=== PATIENT | female | born 1990 | race Caucasian/White ===

== ENCOUNTER → 2020-01-30 09:06 | Outpatient (BNVA) | payer MEDICAID, SELFPAY | PROVIDERS: Family Provider Family Medicine; PCP Family Medicine; Visit Provider Nurse Practitioner Psychiatric/Mental Health | DX: F33.2 Major depressive disorder, recurrent severe without psychotic features (principal); F43.12 Post-traumatic stress disorder, chronic; F60.3 Borderline personality disorder; F41.1 Generalized anxiety disorder | CPT/HCPCS: 99213 ==

== ENCOUNTER → 2020-03-16 08:22 | Outpatient (BNVA) | payer MEDICAID, SELFPAY | PROVIDERS: Family Provider Family Medicine; PCP Family Medicine; Visit Provider Nurse Practitioner Psychiatric/Mental Health | DX: F33.2 Major depressive disorder, recurrent severe without psychotic features (principal); F43.12 Post-traumatic stress disorder, chronic; F60.3 Borderline personality disorder; F41.1 Generalized anxiety disorder | CPT/HCPCS: 99212 ==

== ENCOUNTER 2021-05-12 11:28 | Emergency (ER) | payer MEDICAID, SELFPAY ==
[2021-05-12 11:44] VITALS: BP 123/76; PULSE 92; RESP 16; TEMP 36.8; O2SAT 98; BMI 30.5
--- NOTE | 2021-05-12 12:02 | USR_ITS ---
Are were bowel PROCEDURE INFORMATION: Exam: US , Limited Exam date and time: 05/12/2021 12:02 PM Age: 30 years old Clinical indication: complicated by abdominal or pelvic pain; Generalized abdominal pain; Second trimester (14 weeks 0 days to 27 weeks 6 days); Gestational age or lmp: 22w2d; ; Additional info: Eval for TECHNIQUE: Imaging protocol: Real-time ultrasound of the maternal uterus with image documentation. Exam focused on the clinical indication. COMPARISON: No relevant prior studies available. FINDINGS: Gestation: There is a intrauterine gestational sac with a fetus. heart rate is 153 BPM The amniotic fluid is normal in volume . position: Breech Placenta: The placenta is anterior with fluid collections present corresponding to placental lakes. The edge of the placenta is 4.7 cm from the cervix BIOMETRY: Gestational age (AUA): 22 weeks SOHAN 09/15/2021. Estimated weight: 461 g (1 lb) 45% Biparietal diameter (BPD): BPD 5.1 cm 21 weeks 4 days Head circumference (HC): 20.1 cm 22 weeks 2 days Abdominal circumference (AC): 16.8 cm 21 weeks 6 days Femur length (FL): 3.7 cm 22 weeks MATERNAL: Cervix: The cervical length is 3.3 cm the cervical os is closed. US/ OB limited [id number] IMPRESSION: 1. Single living intrauterine gestation. 2. Gestational age 22 weeks SOHAN 09/15/2021 3. Normal cervix 4. Anterior placenta with placental lakes
--- NOTE | 2021-05-12 12:03 | W.ED.GENADLT ---
HPI - General Adult General: Chief complaint: Nausea/Vomiting/Diarrhea Stated complaint: N/V 5 months Time Seen by Provider: 05/12/21 11:49 History of Present Illness: Patient is a 30-year-old female G2, P1 currently at 22 weeks presenting to the emergency room for evaluation of nausea/vomiting, upper abdominal pain, and diarrhea. Patient has had symptoms for the last 48 hours. Patient says that she is unable to hold anything down since then. Patient has had over 20 episodes of loose stool she says. Patient denies any migratory abdominal pain, anorexia, fever or chills, new urinary symptoms, or worsening abdominal pain. There is no other sick contacts at home. Patient denies any cough, runny nose, sore throat, chest pain, or shortness of breath. Patient also denies any new vaginal discomfort, new contraction, new vaginal bleeding. Patient is followed by OB at [place]. Onset:2 day ago Duration:2 days Location:home Severity:moderate Associated symptoms: Reports nausea and vomiting; Deny chest pain, dyspnea, rash or palpitations Review of Systems Const: Denies: fever(s) or chills Eyes: Denies: change in vision ENMT: Denies: mouth pain Card: Denies: chest pain or palpitations Resp: Denies: dyspnea or non-productive cough GI: Reports: abdominal pain, nausea, vomiting and diarrhea : Denies: dysuria Musc: Denies: extremity pain Skin/Breast: Denies: rash or new lesions Neuro: Denies: weakness in extremities Psych: Reports: other (Normal mood) Burke/Lymph: Denies: easy bruising PFS ED PFSH: Medical History (Updated 05/12/21 @ 12:07 by Ania Villasenor MD) Social History (Updated 05/12/21 @ 12:04 by Ania Villasenor MD) Smoking and tobacco status: current some day smoker Alcohol intake: never Substance/Drug Use: never Physical Exam Const: COMMON NORMALS: alert HENMT: COMMON NORMALS: atraumatic HEAD & SCALP: atraumatic MOUTH: moist mucous membranes not abnormal Eye: COMMON NORMALS: EOMs intact bilaterally and conjunctivae normal CONJUNCTIVA: Yes conjunctivae normal Neck/C-Spine: COMMON NORMALS: full ROM and supple Resp: COMMON NORMALS: normal respiratory effort and clear to auscultation bilaterally AUSCULTATION: clear to auscultation bilaterally Cardio: COMMON NORMALS: regular rate RATE: regular rate GI: COMMON NORMALS: Soft to palpation and non-tender PALPATION: Yes Soft to palpation OTHER: +gravid abdomen, + mild epigastric tenderness to palpation Extremity: COMMON NORMALS: full ROM Neuro: SENSORIUM/ORIENTATION: Yes alert MOTOR EXAM: No Abnormal motor strength present and Other motor observations present (no focal motor deficits) Psych: COMMON NORMALS: speech normal SPEECH: Yes normal speech MOOD & AFFECT: Yes euthymic mood Course Vital Signs: Vital signs: Vital Signs Temperature 98.4 F 05/12/21 13:40 Pulse Rate 96 05/12/21 13:40 Respiratory Rate 14 05/12/21 13:40 Blood Pressure 121/91 05/12/21 13:40 Pulse Oximetry 100 05/12/21 13:40 MDM - General Adult Medical Decision Making 30-year-old female G2, P1 presenting to the emergency room for evaluation of new onset of abdominal pain, nausea/vomiting, diarrhea x2 days. On exam, patient has mild midepigastric tenderness palpation. No other focal findings on exam. Given new onset of diarrhea, this is likely gastroenteritis. Will work-up with basic blood work. I have given patient follow up with our case manager specialist to be seen by our outpatient PCP for management of symptoms in the setting of . Patient aware of a call from our case manager specialist to schedule for appointment(s) and verbalizes understanding of the importance of following up. No suspicion for other acute intra-abdominal pathology including SBO, biliary pathology, appendicitis, diverticulitis, or other emergent condition requiring surgery. Rx tylenol PRN abd pain, maalox/pepcid PRN dyspepsia, and relgan PRN nausea/vomiting Disposition: Discharge. Patient counseled regarding diagnostic impression, treatment plan. Patient given ED strict return precautions to return for continuation, worsening, or development of new symptoms. Instructed to f/u w/ PCP regarding symptoms today. Patient verbalized understanding. Lab Data : 05/12/21 12:30 05/12/21 12:30 Radiology Impressions Obstetrics Ultrasound 05/12/21 12:02 IMPRESSION: 1. Single living intrauterine gestation. 2. Gestational age 22 weeks SOHAN 09/15/2021 3. Normal cervix 4. Anterior placenta with placental lakes Laboratory Results WBC 12.1 10^3/uL (4.0-10.0) H 05/12/21 12:30 RBC 4.13 10^6/uL (4.1-5.3) 05/12/21 12:30 Hgb 12.7 g/dL (11.5-15.3) 05/12/21 12:30 Hct 37.6 % (37.0-47.0) 05/12/21 12: MCV 91.0 fl (81-99) 05/12/21 12: MCH 30.8 pg (28.0-34.0) 05/12/21 12: MCHC 33.8 g/dL (30.0-36.0) 05/12/21: RDW 13.2 % (12.1-15.1) 05/12/21: Plt Count 376 10^3/cmm (130-400) 05/12/21: MPV 9.8 fL (7.4-10.4) 05/12/21 12: Neut % (Auto) 86.6 % 05/12/21 12: Lymph % (Auto) 8.3 % 05/12/21 12: [place] % (Auto) 4.3 % 05/12/21 12: Eos % (Auto) 0.2 % 05/12/21: Baso % (Auto) 0.2 % 05/12/21 12: Neut # (Auto) 10.50 10^3/uL (1.8-7.7) H 05/12/21: Lymph # (Auto) 1.0 10^3/uL (0.8-4.8) 05/12/21 12: [place] # (Auto) 0.5 10^3/uL (0.2-0.9) 05/12/21 12: Eos # (Auto) 0.0 10^3/uL (0.0-0.8) 05/12/21: Baso # (Auto) 0.0 10^3/uL (0.0-0.1) 05/12/21 12:30 Nucleated RBC % (auto) 0 % 05/12/21: Nucleated RBCs # 0.0 /100WBC 05/12/21 12: Sodium 134 mmol/L (136-145) L 05/12/21 12:30 Potassium 3.6 mmol/L (3.5-5.1) 05/12/21 12:30 Chloride 103 mmol/L (98-107) 05/12/21 12:30 Carbon Dioxide 18 mmol/L (22-29) L 05/12/21 12:30 Anion Gap 16.6 (5-19) 05/12/21 12:30 BUN 6 mg/dL (6-20) 05/12/21 12:30 Creatinine 0.3 mg/dL (0.5-0.9) L 05/12/21 12:30 GFR Calculation 261.2 mL/min (90-130) H 05/12/21 12:30 Glucose 104 mg/dL (65-115) 05/12/21 12:30 Calculated Osmolality 276 mOsm/kg (285-295) L 05/12/21 12:30 Calcium 9.4 mg/dL (8.5-10.5) 05/12/21 12:30 Total Bilirubin 0.3 mg/dL (0.15-1.2) 05/12/21 12:30 AST 14 U/L (0-32) 05/12/21 12:30 ALT 10 U/L (0-33) 05/12/21 12:30 Alkaline Phosphatase 82 IU/L (35-105) 05/12/21 12:30 Total Protein 7.6 g/dL (6.6-8.7) 05/12/21 12:30 Albumin 4.2 g/dL (3.5-5.2) 05/12/21 12:30 Globulin 3.4 g/dL (1.3-4.6) 05/12/21 12:30 Lipase 15 U/L (13-60) 05/12/21 12:30 Urine Color Dark yellow (Yellow) 05/12/21 13:00 Urine Appearance Clear (CLEAR) 05/12/21 13:00 Urine pH 5 (5-7) 05/12/21 13:00 Ur Specific [place] 1.025 (1.005-1.030) 05/12/21 13:00 Urine Protein 1+ (Negative) H 05/12/21 13:00 Urine Glucose (UA) Norm (Normal) 05/12/21 13:00 Urine Ketones 3+ (Negative) H 05/12/21 13:00 Urine Blood 2+ (Negative) H 05/12/21 13:00 Urine Nitrate Negative (Negative) 05/12/21 13:00 Urine Bilirubin 1+ (Negative) H 05/12/21 13:00 Urine Urobilinogen Norm mg/dL (Negative) 05/12/21 13:00 Ur Leukocyte Esterase Negative (Negative) 05/12/21 13:00 Urine RBC 0-4 /hpf (0-2) H 05/12/21 13:00 Urine WBC 0-4 /hpf (0-5) H 05/12/21 13:00 Ur Squamous Epith Cells 10-15 /hpf (0-5) H 05/12/21 13:00 Amorphous Sediment Not Reportable 05/12/21 13:00 Urine Bacteria 1+ /hpf (NONE) H 05/12/21 13:00 Urine Mucus 2+ /hpf 05/12/21 13:00 Discharge Plan Discharge Patient Disposition: Home Clinical Impression: Abdominal pain, Nausea & vomiting, Diarrhea Prescriptions: New Pepcid 20 mg tablet 20 mg PO BID PRN (Reason: abdominal pain) 10 Days Qty: 20 0RF Maalox Advanced 1,000-60 mg tablet,chewable 1 tab PO TID PRN (Reason: abdominal pain) 7 Days Qty: 21 0RF Reglan 5 mg tablet 5 mg PO TID PRN (Reason: nausea and vomiting) 5 Days Qty: 15 0RF Discharge Orders: Discharge ED (Routine); Ordered 05/12/21 Ordered By: Ania Villasenor Referrals: Juliana Cruz, SLITTER CREASER SLOTTER HELPER-C [Primary Care Provider] - Discharge Diet: Advance as tolerated Discharge Activity: Increase activity as tolerated Patient Instructions: Abdominal Pain (ED) Activity Restrictions/Additional Instructions: Please come back if you have any worsening abdominal pain, fever or chills, nausea or vomiting, diarrhea, blood in the stool, inability hold down liquid or solids, or any new concerning complaints. 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
[2021-05-12] MEDS: sodium chloride 0.9% 1,000 ML 999 ML IV (12:39)
[2021-05-12] MEDS: metoclopramide 5 mg/mL SDV 2 mL IVP (12:39)
[2021-05-12] MEDS: lidocaine 2% viscous 15 ML, aluminum-mag hydrox-simethicon 30 ML, sucralfate oral liq 1 GM PO (12:39)
[2021-05-12 12:40] LABS: Basophils % 0.2 %; Eosinophils % 0.2 %; Hematocrit 37.6 % (37.0-47.0); Hemoglobin 12.7 g/dL (11.5-15.3); Lymphocytes % 8.3 %; Mean Corpuscular HGB Conc 33.8 g/dL (30.0-36.0); Mean Corpuscular Hemoglobin 30.8 pg (28.0-34.0); Mean Platelet Volume 9.8 fL (7.4-10.4); Monocytes # 0.5 10^3/uL (0.2-0.9); Monocytes % 4.3 %; Neutrophils % 86.6 %; Nucleated Red Blood Cells % 0 %; Platelet Count 376 10^3/cmm (130-400); Red Blood Count 4.13 10^6/uL (4.1-5.3); Red Cell Distribution Width 13.2 % (12.1-15.1); White Blood Count 12.1 10^3/uL (4.0-10.0)
[2021-05-12 13:06] LABS: Alanine Aminotransferase 10 U/L (0-33); Albumin Level 4.2 g/dL (3.5-5.2); Alkaline Phosphatase 82 IU/L (35-105); Anion Gap 16.6 (5-19); Aspartate Amino Transferase 14 U/L (0-32); Blood Urea Nitrogen 6 mg/dL (6-20); Calcium 9.4 mg/dL (8.5-10.5); Carbon Dioxide 18 mmol/L (22-29); Chloride 103 mmol/L (98-107); Globulin 3.4 g/dL (1.3-4.6); Glomerular Filtration Rate 261.2 mL/min (90-130); Glucose 104 mg/dL (65-115); Lipase 15 U/L (13-60); Osmolality Calculated 276 mOsm/kg (285-295); Potassium 3.6 mmol/L (3.5-5.1); Sodium 134 mmol/L (136-145); Total Bilirubin 0.3 mg/dL (0.15-1.2); Total Protein 7.6 g/dL (6.6-8.7)
[2021-05-12 13:11] VITALS: BP 121/91; PULSE 82; RESP 16; TEMP 37.1; O2SAT 100
[2021-05-12 13:40] VITALS: BP 121/91; PULSE 96; RESP 14; TEMP 36.9; O2SAT 100
[2021-05-12 13:47] LABS: Add Urine Microscopic? YES; Bilirubin Urine 1+ (Negative); Blood Urine 2+ (Negative); Glucose Urine UA Norm (Normal); Ketones Urine 3+ (Negative); Leukocyte Esterase Urine Negative (Negative); Nitrate Urine Negative (Negative); Protein Urine 1+ (Negative); Specific Gravity, Urine 1.025 (1.005-1.030); Urine Appearance Clear (CLEAR); Urine Color Dark Yellow (Yellow); Urobilinogen Urine Norm (Negative); pH Urine 5 (5-7)
[2021-05-12 13:51] LABS: RBC Urine 0-4 /hpf (0-2)
[2021-05-12 13:52] LABS: Add Urine Culture? Yes; Bacteria Urine 1+ /hpf; Mucus Urine 2+ /hpf; WBC Urine 0-4 /hpf (0-5)
--- NOTE | 2021-05-13 12:40 | DCPLANNER ---
traffic incident management manager had message to speak with patient about getting an appointment with primary care. traffic incident management manager called phone number [phone], unable to speak with patient at this time, a voicemail was left for patient to return case assistant phone call.
== END 2021-05-12 13:40 | disposition home or self-care (01) ==
PROVIDERS: Emergency Provider Emergency Medicine; PCP Nurse Practitioner Family
DX: R11.2 Nausea with vomiting, unspecified (principal); R10.9 Unspecified abdominal pain; R19.7 Diarrhea, unspecified; F17.210 Nicotine dependence, cigarettes, uncomplicated
CPT/HCPCS: 76815; 80053; 81001; 83690; 85025; 87086; 96361; 96374; 99283; J2765; J7030

== ENCOUNTER → 2022-05-09 16:38 | Outpatient (BNVA) | payer MEDICAID, SELFPAY | PROVIDERS: Family Provider Family Medicine; PCP Nurse Practitioner Family; Visit Provider Family Medicine | DX: F90.9 Attention-deficit hyperactivity disorder, unspecified type (principal) | CPT/HCPCS: 80307 ==

== ENCOUNTER → 2022-06-24 15:16 | Outpatient (BNVA) | payer MEDICAID, SELFPAY | PROVIDERS: Family Provider Family Medicine; PCP Family Medicine; Visit Provider Family Medicine | DX: F90.9 Attention-deficit hyperactivity disorder, unspecified type (principal); F41.1 Generalized anxiety disorder | CPT/HCPCS: 80307 ==

== ENCOUNTER → 2022-08-05 15:17 | Outpatient (BNVA) | payer MEDICAID, SELFPAY | PROVIDERS: Family Provider Family Medicine; PCP Family Medicine; Visit Provider Nurse Practitioner | DX: R05.9 Cough, unspecified (principal); J22 Unspecified acute lower respiratory infection | CPT/HCPCS: 71046 ==

== ENCOUNTER 2022-12-03 12:34 | Emergency (ER) | payer MEDICAID, SELFPAY ==
[2022-12-03 12:37] VITALS: BP 148/95; PULSE 88; RESP 18; TEMP 36.8; O2SAT 100; BMI 26.5
[2022-12-03 12:55] LABS: Basophils % 0.3 %; Eosinophils # 0.2 10^3/uL (0.0-0.8); Eosinophils % 1.3 %; Lymphocytes # 0.7 10^3/uL (0.8-4.8); Lymphocytes % 5.8 %; Mean Corpuscular HGB Conc 32.9 g/dL (30-55); Mean Corpuscular Volume 88.1 fl (85-98); Mean Platelet Volume 10.5 fL (7.4-10.4); Monocytes # 0.5 10^3/uL (0.2-0.9); Monocytes % 3.7 %; Neutrophils # 11.05 10^3/uL (1.8-7.7); Neutrophils % 88.7 %; Nucleated Red Blood Cells % 0 %; Platelet Count 328 10^3/cmm (157-399); Red Blood Count 5.45 10^6/uL (3.85-5.65); Red Cell Distribution Width 15.9 % (12.1-15.1); White Blood Count 12.46 10^3/uL (3.29-11.43)
[2022-12-03 12:57] VITALS: BP 137/92; PULSE 93; RESP 18; O2SAT 98
[2022-12-03 13:07] VITALS: O2SAT 98
[2022-12-03 13:15] LABS: Alanine Aminotransferase 12 U/L (0-33); Albumin Level 4.6 g/dL (3.5-5.2); Alkaline Phosphatase 95 U/L (35-105); Anion Gap 18.7 (5-19); Aspartate Amino Transferase 16 U/L (0-32); Blood Urea Nitrogen 8 mg/dL (6-20); Calcium 9.5 mg/dL (8.5-10.5); Carbon Dioxide 20 mmol/L (22-29); Chloride 104 mmol/L (98-107); Globulin 3.3 g/dL (1.3-4.6); Glucose 105 mg/dL (65-115); Lipase 16 U/L (13-60); Osmolality Calculated 287 mOsm/kg (285-295); Potassium 3.7 mmol/L (3.5-5.1); Sodium 139 mmol/L (136-145); Total Bilirubin 0.7 mg/dL (0.15-1.2); Total Protein 7.9 g/dL (6.6-8.7)
--- NOTE | 2022-12-03 13:27 | PC.PHAR ---
PT STATES SHE TAKES CARE OF HER OWN MEDICATIONS-PT STATES SHE TAKES EFFEXOR INSTEAD OF LEXAPRO 20MG (EXT SHOWS LAST FILLED 11/02/22 30D/S) PTS PHARMACY NOT OPEN ON MONDAY TO VERIFY PT STATES ITS AN OLD RX SHES BEEN TAKING EXT ALSO DOESNT SHOW WHEN FILLED ON EFFEXOR ER 37.5MG DAILY-NOTES ARE MADE IN THE PHARMACY COMMENTS
--- NOTE | 2022-12-03 13:33 | CTR_ITS ---
PROCEDURE INFORMATION: Exam: CT Abdomen And Pelvis With Contrast Exam date and time: 12/03/2022 2:14 PM Age: 32 years old Clinical indication: Abdominal pain; Epigastric; Additional info: Ruq pain, n/v TECHNIQUE: Imaging protocol: Computed tomography of the abdomen and pelvis with contrast. Radiation optimization: All CT scans at this facility use at least one of these dose optimization techniques: automated exposure control; mA and/or kV adjustment per patient size (includes targeted exams where dose is matched to clinical indication); or iterative reconstruction. Contrast material: OMNI 350; Contrast volume: 100 ml; Contrast route: INTRAVENOUS (IV); REPORTING DATA: Count of CT and Cardiac NM exams in prior 12 months: This patient has received 0 known CTs and 0 known cardiac nuclear medicine studies in the 12 months prior to the current study. COMPARISON: OB limited [id number] 05/12/2021 12:31 PM RADIATION DOSE METRICS: Total DLP (mGy-cm): 437.62 FINDINGS: Liver: Mild hepatomegaly. No obvious cirrhosis or discrete mass. Gallbladder and bile ducts: At least 1 punctate calcified gallbladder calculi. There is also probable sludge and additional noncalcified calculi may be present. No imaging signs of cholecystitis or bile duct dilatation. Pancreas: Normal. No ductal dilation. Spleen: Normal. No splenomegaly. Adrenal glands: Normal. No mass. Kidneys and ureters: No obstructing calculus. No hydronephrosis. Stomach and bowel: There is a mildly distended fluid-filled bowel like structure in the right/midline pelvic region somewhat displacing the rectum to the left side with no solid elements or acute regional inflammatory response. The regional bowel wall assessment is also somewhat limited due to incomplete distention and lack of luminal contrast however there is probable mild sigmoid colonic wall thickening and increased enhancement. A few tiny early diverticuli are probably present with no acute inflammatory response. Findings suggest nonspecific short segment sigmoid colitis with probable regional ileus and diarrhea. Clinical correlation is needed. No regional abscess or free air. No obvious imaging signs of volvulus however follow-up assessment should be obtained if symptoms persist. Otherwise there is small-moderate amount of liquid stool throughout the proximal colon. No small bowel obstruction or pneumatosis however there is also probable mild proximal small bowel wall thickening suggesting mild nonspecific proximal enteritis. Appendix: No evidence of appendicitis. Intraperitoneal space: See Stomach and bowel finding. Vasculature: No abdominal aortic aneurysm. Lymph nodes: No enlarged lymph nodes. Urinary bladder: Unremarkable as visualized. Reproductive: There is an IUD within the superior endometrial cavity. Small cysts with enhancing rim in the left adnexal region, likely a benign corpus luteum measuring 18 x 19 mm. Otherwise unremarkable uterine adnexal contour without acute regional inflammatory response.. Bones/joints: No acute fracture. Soft tissues: No acute findings. CT/CT abdomen pelvis w con* [id number] IMPRESSION: 1. Mild sigmoid colonic wall and proximal small bowel wall thickening suggesting nonspecific gastroenteritis-colitis. Short segment of distended fluid-filled bowel in the pelvis as described which may be related to regional sigmoid/upper rectal ileus and diarrhea. Otherwise no obvious bowel obstruction, free air or pneumatosis. No drainable abscess. Follow-up assessment may be considered if symptoms persist. 2. Probable small benign left adnexal region corpus luteum. Otherwise unremarkable uterine adnexal contour. IUD in good position. 3. Mild hepatomegaly. 4. Cholelithiasis.
--- NOTE | 2022-12-03 13:34 | W.ED.ABDPA2 ---
HPI - Abdominal Pain General: Chief Complaint: Abdominal Pain Stated Complaint: ABD PAIN Time Seen by Provider: 12/03/22 12:41 History of Present Illness: Patient presents ER with complaints of right upper quadrant abdominal pain. Patient states she has known gallstones and gallbladder issues for over about the last year and a half. Patient was informed needs her gallbladder out but then it got better. Patient states he got worse this morning approximately 1 AM. Patient is having nausea but no vomiting and right upper quadrant abdominal pain and diarrhea every time she eats. Especially fried fatty foods such as the potatoes and fried fish that she ate last night. Review of Systems General: Reports: 10 or more systems reviewed and unremarkable except in HPI and below PFSH ED PFSH: Medical History Abdominal pain Borderline personality disorder Chronic post-traumatic stress disorder (PTSD) DUNG (generalized anxiety disorder) Major depressive disorder, recurrent, severe without psychotic features Ruptured tympanic membrane Seasonal allergic rhinitis URI (upper respiratory infection) Social History Smoking and tobacco status: current some day smoker cigarettes Years cigarettes smoked: 17 Quit status (tobacco): has tried quititng Number of times tried to quit tobacco: 1 Second hand smoke exposure: Yes (Sometimes) Smoking risk assessment/counseling performed?: No Alcohol intake: never Substance/Drug Use: never Female Reproductive History: : 2 Physical Exam Const: COMMON NORMALS: no acute distress, average body habitus, patient oriented x3, no limitations, healthy appearing, alert and well nourished HENMT: COMMON NORMALS: normocephalic, atraumatic, hearing grossly normal bilaterally, external ears normal, Normal external nose present and moist oral mucous membranes HEAD & SCALP: normocephalic and atraumatic NOSE: Normal external nose present EXTERNAL EAR: Yes external ears normal Eye: COMMON NORMALS: Equal, round and reactive pupils present, EOMs intact bilaterally, conjunctivae normal and no scleral icterus CONJUNCTIVA: Yes conjunctivae normal PUPIL: Yes Equal, round and reactive pupils present Neck/C-Spine: COMMON NORMALS: full ROM, no lymphadenopathy, supple, no meningeal signs, no JVD and Thyroid normal THYROID: Thyroid normal Chest: COMMONS NORMALS: normal inspection of the chest and normal palpation of entire chest wall Resp: COMMON NORMALS: normal respiratory effort, No retractions, No use of accessory muscles and clear to auscultation bilaterally AUSCULTATION: clear to auscultation bilaterally Cardio: COMMON NORMALS: no JVD, regular rate, regular rhythm, S1 normal heart sound present, S2 normal heart sound present, No gallops present (Cardio), No clicks present (Cardio), No murmurs present (Cardio) and No rub (Cardio) RATE: regular rate RHYTHM: regular rhythm HEART SOUNDS: S1 normal heart sound present and S2 normal heart sound present GI: COMMON NORMALS: Normal to inspection, nondistended, normoactive bowel sounds present, Soft to palpation, No hepatosplenomegaly present and no masses; negative for non-tender (Tender to palpate right upper quadrant) PALPATION: Yes Soft to palpation and Yes No hepatosplenomegaly present : COMMON NORMALS: Yes no CVA tenderness BLADDER/KIDNEY EXAM: Yes no CVA tenderness Back/Pelvis: COMMON NORMALS: no CVA tenderness Neuro: COMMON NORMALS: patient oriented x3 SENSORIUM/ORIENTATION: Yes alert MENINGEAL SIGNS: Yes no meningeal signs Course Vital Signs: Vital signs: Vital Signs Temperature 98.3 F 12/03/22 12:37 Pulse Rate 89 12/03/22 14:52 Respiratory Rate 16 12/03/22 14:52 Blood Pressure 139/91 12/03/22 14:52 Pulse Oximetry 97 12/03/22 14:52 Oxygen Delivery Me thod Room Air 12/03/22 14:52 MDM - Abdominal Pain Medical Decision Making Patient presents to the ER with right upper quadrant pain. Known Annabel lithiasis. Patient was worked up with physical exam and blood work, urine analysis, abdomen pelvis CT with contrast. All of these pointed toward cholelithiasis and gastroenteritis. Patient will be referred to general surgery for possible cholecystectomy. All of this was discussed with the patient and her mother and they understand and agreed. Patient be discharged home. Differential Diagnosis Likely abdominal pain; Unlikely acute appendicitis, calculus of kidney, constipation, diverticulitis, endometriosis, gastroenteritis, pancreatitis or small bowel obstruction Medical Records I reviewed the patient's medical records. Lab Data I reviewed the patient's lab results. 12/03/22 11:40 12/03/22 11:40 Labs/Radiology: Radiology Impressions Abdomen/Pelvis CT 12/03/22 13:33 IMPRESSION: 1. Mild sigmoid colonic wall and proximal small bowel wall thickening suggesting nonspecific gastroenteritis-colitis. Short segment of distended fluid-filled bowel in the pelvis as described which may be related to regional sigmoid/upper rectal ileus and diarrhea. Otherwise no obvious bowel obstruction, free air or pneumatosis. No drainable abscess. Follow-up assessment may be considered if symptoms persist. 2. Probable small benign left adnexal region corpus luteum. Otherwise unremarkable uterine adnexal contour. IUD in good position. 3. Mild hepatomegaly. 4. Cholelithiasis. Laboratory Results WBC 12.46 10^3/uL (3.29-11.43) H 12/03/22 11:40 RBC 5.45 10^6/uL (3.85-5.65) 12/03/22 11:40 Hgb 15.80 g/dL (11.27-16.99) 12/03/22 11:40 Hct 48.0 % (36-47) H 12/03/22 11:40 MCV 88.1 fl (85-98) 12/03/22 11:40 MCH 29.0 pg (27-33) 12/03/22 11:40 MCHC 32.9 g/dL (30-55) 12/03/22 11:40 RDW 15.9 % (12.1-15.1) H 12/03/22 11:40 Plt Count 328 10^3/cmm (157-399) 12/03/22 11:40 MPV 10.5 fL (7.4-10.4) H 12/03/22 11:40 Neut % (Auto) 88.7 % 12/03/22 11:40 Lymph % (Auto) 5.8 % 12/03/22 11:40 [place] % (Auto) 3.7 % 12/03/22 11:40 Eos % (Auto) 1.3 % 12/03/22 11:40 Baso % (Auto) 0.3 % 12/03/22 11:40 Neut # (Auto) 11.05 10^3/uL (1.8-7.7) H 12/03/22 11:40 Lymph # (Auto) 0.7 10^3/uL (0.8-4.8) L 12/03/22 11:40 [place] # (Auto) 0.5 10^3/uL (0.2-0.9) 12/03/22 11:40 Eos # (Auto) 0.2 10^3/uL (0.0-0.8) 12/03/22 11:40 Baso # (Auto) 0.0 10^3/uL (0.0-0.1) 12/03/22 11:40 Nucleated RBC % (auto) 0 % 12/03/22 11:40 Nucleated RBCs # 0.0 /100WBC 12/03/22 11:40 Sodium 139 mmol/L (136-145) 12/03/22 11:40 Potassium 3.7 mmol/L (3.5-5.1) 12/03/22 11:40 Chloride 104 mmol/L (98-107) 12/03/22 11:40 Carbon Dioxide 20 mmol/L (22-29) L 12/03/22 11:40 Anion Gap 18.7 (5-19) 12/03/22 11:40 BUN 8 mg/dL (6-20) 12/03/22 11:40 Creatinine 0.4 mg/dL (0.5-0.9) L 12/03/22 11:40 GFR Calculation 185.0 mL/min (90-130) H 12/03/22 11:40 Glucose 105 mg/dL (65-115) 12/03/22 11:40 Calculated Osmolality 287 mOsm/kg (285-295) 12/03/22 11:40 Calcium 9.5 mg/dL (8.5-10.5) 12/03/22 11:40 Total Bilirubin 0.7 mg/dL (0.15-1.2) 12/03/22 11:40 AST 16 U/L (0-32) 12/03/22 11:40 ALT 12 U/L (0-33) 12/03/22 11:40 Alkaline Phosphatase 95 U/L (35-105) 12/03/22 11:40 Total Protein 7.9 g/dL (6.6-8.7) 12/03/22 11:40 Albumin 4.6 g/dL (3.5-5.2) 12/03/22 11:40 Globulin 3.3 g/dL (1.3-4.6) 12/03/22 11:40 Lipase 16 U/L (13-60) 12/03/22 11:40 HCG, Qual Negative (Negative) 12/03/22 13:30 Urine Color Yellow (Yellow) 12/03/22 13:30 Urine Appearance Clear (CLEAR) 12/03/22 13:30 Urine pH 8 (5-7) H 12/03/22 13:30 Ur Specific [place] 1.005 (1.005-1.030) 12/03/22 13:30 Urine Protein Neg (Negative) 12/03/22 13:30 Urine Glucose (UA) Norm (Normal) 12/03/22 13:30 Urine Ketones Negative (Negative) 12/03/22 13:30 Urine Blood Neg (Negative) 12/03/22 13:30 Urine Nitrate Negative (Negative) 12/03/22 13:30 Urine Bilirubin Neg (Negative) 12/03/22 13:30 Prot Sulfosalicylic Acd Negative (Negative) 12/03/22 13:30 Urine Urobilinogen Norm mg/dL (Negative) 12/03/22 13:30 Ur Leukocyte Esterase Negative (Negative) 12/03/22 13:30 All radiology interpretation(s) finalized by discharge Discharge Plan Discharge Patient Disposition: Home Clinical Impression: Recurrent biliary colic Abdominal pain Qualifiers: Abdominal location: right upper quadrant Qualified Code(s): R10.11 - Right upper quadrant pain Condition: Stable Prescriptions: New ondansetron HCl 4 mg tablet 4 mg PO Q6H PRN (Reason: nausea and vomiting) Qty: 14 0RF hydrocodone-acetaminophen 5-325 mg tablet 1 tab PO Q8H PRN (Reason: pain) Qty: 14 0RF No Action (DME) nebulizer accessories Kit See Rx Instructions .Route Qty: 1 0RF Rx Instructions: As directed ipratropium-albuterol 0.5 mg-3 mg(2.5 mg base)/3 mL solution for nebulization 3 ml inhalation QID PRN (Reason: wheezing) Qty: 90 0RF clonazepam 0.5 mg tablet 0.5 mg PO BID 30 Days Qty: 60 3RF Effexor XR 37.5 mg Capsule,Extended Release 24hr 37.5 mg PO DAILY methylphenidate HCl 10 mg tablet See Rx Instructions .ROUTE .COMPLEX Rx Instructions: 10MG PO IN THE AM AND 10MG PO AT NOON Ventolin HFA 90 mcg/actuation HFA aerosol inhaler 2 puff inhalation QID PRN (Reason: Shortness Of Breath) buspirone 15 mg tablet 15 mg PO TID Discharge Orders: Discharge ED (Routine); Ordered 12/03/22 Ordered By: Sven Sanchez Referrals: Juliana Cruz FNP-C [Primary Care Provider] - 1 week Patient Instructions: Biliary Colic (ED), Abdominal Pain (ED) Activity Restrictions/Additional Instructions: Member to eat a low-fat, processed food diet. He had been referred to case management they should be calling you Monday morning to make an appointment to general surgery to discuss your gallbladder and possibly removal. Please follow-up with your family practice doctor in the next week for further evaluation and treatment as needed. 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
[2022-12-03 13:37] LABS: Add Urine Microscopic? NO; Charge for UA Resulting for Rev
[2022-12-03 13:45] LABS: Bilirubin Urine Neg (Negative); Blood Urine Neg (Negative); Glucose Urine UA Norm (Normal); HCG Qualitative Urine. Negative (Negative); Ketones Urine Negative (Negative); Leukocyte Esterase Urine Negative (Negative); Nitrate Urine Negative (Negative); Protein Urine Neg (Negative); Specific Gravity, Urine 1.005 (1.005-1.030); Sulfosalicylic Acid Urine Negative (Negative); Urine Appearance Clear (CLEAR); Urine Color Yellow (Yellow); Urobilinogen Urine Norm (Negative); pH Urine 8 (5-7)
[2022-12-03] MEDS: ketorolac 30 mg/mL INJ IVP (14:51)
[2022-12-03] MEDS: ondansetron 2 mg/ML SDV 2 mL 4 MG IVP (14:51)
[2022-12-03 14:52] VITALS: BP 139/91; PULSE 89; RESP 16; O2SAT 97
[2022-12-03 16:26] VITALS: BP 108/70; PULSE 81; RESP 16; O2SAT 99
[2022-12-03 16:27] VITALS: BP 108/70; PULSE 81; RESP 16; O2SAT 99
--- NOTE | 2022-12-05 10:28 | PC.SOCIAL ---
General Surgery Referral Referral to clinic at this time. Clinic to contact patient with appt date/time.
== END 2022-12-03 16:28 | disposition home or self-care (01) ==
PROVIDERS: Emergency Provider Emergency Medicine; PCP Nurse Practitioner Family
DX: K80.20 Calculus of gallbladder without cholecystitis without obstruction (principal); F17.210 Nicotine dependence, cigarettes, uncomplicated
CPT/HCPCS: 74177; 80053; 81003; 81025; 83690; 85025; 96374; 96375; 99285; J1885; J2405; Q9967

== ENCOUNTER 2023-03-28 13:10 | Emergency (ER) | payer SELFPAY ==
[2023-03-28 13:25] VITALS: BP 128/75; PULSE 79; RESP 16; TEMP 36.8; O2SAT 100; BMI 26.5
--- NOTE | 2023-03-28 13:44 | ED_ITS ---
HPI - Abdominal Pain 2 General: Chief Complaint: Abdominal Pain Stated Complaint: abd pain, N/V Time Seen by Provider: 03/28/23 13:36 Source: patient Mode of arrival: ambulatory Limitations: no limitations History of Present Illness: Patient is a 32-year-old female presents to ED today with a complaint of abdominal pain and nausea beginning yesterday. Patient states she has had similar intermittent discomforts over the past several months. She has reportedly been told she needs an elective cholecystectomy but has never followed up with a general surgeon. Patient today has not had any episodes of emesis. She has had a few episodes of diarrhea. Denies yellowing to her skin or eyes. She has not been running fevers. She is reporting most of her pain to her left upper quadrant and epigastric region. Patient states she does drink daily/heavily although has not consumed alcohol over the last few days secondary to abdominal discomfort. She denies history of pancreatitis. MD elicited complaint: abdominal pain Pertinent past history: other (gallstones) Onset (ago): day(s) Pain Consistency: constant Location: Epigastric and LUQ Severity: moderate Radiation: none Migration to: no migration Relieving factors: nothing Associated Symptoms: Reports diarrhea and nausea; Denies chills, dysuria, fever(s), hematochezia, hematemesis, melena and vomiting Related Data: Patient : No Review of Systems 2 Const: Denies: fever(s), chills, body aches, fatigue or malaise Card: Denies: chest pain Resp: Denies: dyspnea GI: Reports: abdominal pain, nausea and diarrhea; Denies: vomiting, hematemesis, hematochezia or melena : Denies: flank pain, difficulty voiding, dysuria, urinary frequency, urinary urgency or urinary hesitancy Musc: Denies: neck pain, back pain, extremity pain or joint pain Skin/Breast: Denies: rash Neuro: Denies: headache(s), numbness in extremities, weakness in extremities, sensory changes or dizziness PFSH ED 2 PFSH: Medical History Ruptured tympanic membrane URI (upper respiratory infection) DUNG (generalized anxiety disorder) Borderline personality disorder Chronic post-traumatic stress disorder (PTSD) Major depressive disorder, recurrent, severe without psychotic features Abdominal pain Seasonal allergic rhinitis Social History Smoking and tobacco/nicotine status: current some day tobacco/nicotine user cigarettes Years cigarettes smoked: 17 Quit status (tobacco/nicotine): has tried quititng Number of times tried to quit tobacco: 1 Second hand smoke exposure: Yes (Sometimes) Alcohol intake: never Substance/Drug Use: never Physical Exam 2 Const: COMMON NORMALS: no acute distress, patient oriented x3, no limitations, alert and well nourished GENERAL APPEARANCE: cooperative O RIENTATION/CONSCIOUSNESS: Yes awake, Yes oriented to person and Yes oriented to time Eye: COMMON NORMALS: no scleral icterus Resp: COMMON NORMALS: normal respiratory effort and clear to auscultation bilaterally AUSCULTATION: clear to auscultation bilaterally Cardio: COMMON NORMALS: regular rate and regular rhythm RATE: regular rate RHYTHM: regular rhythm GI: COMMON NORMALS: Normal to inspection, nondistended, normoactive bowel sounds present, Soft to palpation, No hepatosplenomegaly present and no masses INSPECTION: Yes normal to inspection AUSCULTATION: Yes normoactive bowel sounds PALPATION: Yes Soft to palpation, Yes Tenderness to palpation present (GI) (epigastric, LUQ), No Guarding due to palpation present (GI), No Rigid due to palpation and Yes No hepatosplenomegaly present : COMMON NORMALS: Yes no CVA tenderness BLADDER/KIDNEY EXAM: Yes no CVA tenderness Back/Pelvis: COMMON NORMALS: no CVA tenderness and thoracic and lumbar spine normal to inspection Extremity: GENERAL: Yes normal exam except as noted Neuro: COMMON NORMALS: patient oriented x3, moves all extremities, no focal motor deficits, no sensory deficits noted and gait normal S ENSORIUM/ORIENTATION: Yes alert, Yes oriented to person and Yes oriented to time Skin: COMMON NORMALS: no rashes or lesions noted GENERAL SKIN EXAM: no rashes or lesions noted Course 2 Vital Signs: Vital signs: Vital Signs Temperature 98.2 F 03/28/23 13:25 Pulse Rate 84 03/28/23 15:34 Respiratory Rate 16 03/28/23 13:25 Blood Pressure 102/61 03/28/23 15:34 Pulse Oximetry 94 03/28/23 15:34 Oxygen Delivery Me thod Room Air 03/28/23 15:34 MDM - Abdominal Pain Medical Decision Making Patient is a 32-year-old female presents to ED today with complaint of epigastric and left upper quadrant abdominal pain over the past few days. She has been told in the past that this is related to her gallbladder and that she needs it removed. Patient states this all stemmed from a CT report performed here on 11/2022. On that report they visualized a punctate gallbladder calculus with some mild sludge. She has no right upper quadrant tenderness. At this time I have a low suspicion that this is biliary colic. Patient is an everyday normally heavy drinker. I think her symptoms most likely are related to an alcoholic gastritis. She did get relief from at GI cocktail here. Her blood work today is unremarkable including a lipase. The patient will be placed on Protonix and Carafate and given case management follow-up for a primary care provider. She may eventually require referral for EGD. UA showing some hematuria. Patient is just completing her menstrual cycle. Return to ED precautions given. Lab Data 03/28/23 13:51 03/28/23 13:51 Labs/Radiology: Laboratory Results WBC 12.42 10^3/uL (3.29-11.43) H 03/28/23 13:51 RBC 4.60 10^6/uL (3.85-5.65) 03/28/23 13:51 Hgb 14.60 g/dL (11.27-16.99) 03/28/23 13:51 Hct 44.7 % (36-47) 03/28/23 13:51 MCV 97.2 fl (85-98) 03/28/23 13:51 MCH 31.7 pg (27-33) 03/28/23 13:51 MCHC 32.7 g/dL (30-55) 03/28/23 13:51 RDW 13.0 % (12.1-15.1) 03/28/23 13:51 Plt Count 312 10^3/cmm (157-399) 03/28/23 13:51 MPV 9.7 fL (7.4-10.4) 03/28/23 13:51 Neut % (Auto) 76.7 % 03/28/23 13:51 Lymph % (Auto) 17.4 % 03/28/23 13:51 [place] % (Auto) 3.9 % 03/28/23 13:51 Eos % (Auto) 1.5 % 03/28/23 13:51 Baso % (Auto) 0.2 % 03/28/23 13:51 Neut # (Auto) 9.52 10^3/uL (1.8-7.7) H 03/28/23 13:51 Lymph # (Auto) 2.2 10^3/uL (0.8-4.8) 03/28/23 13:51 [place] # (Auto) 0.5 10^3/uL (0.2-0.9) 03/28/23 13:51 Eos # (Auto) 0.2 10^3/uL (0.0-0.8) 03/28/23 13:51 Baso # (Auto) 0.0 10^3/uL (0.0-0.1) 03/28/23 13:51 Nucleated RBC % (auto) 0 % 03/28/23 13:51 Nucleated RBCs # 0.0 /100WBC 03/28/23 13:51 Sodium 140 mmol/L (136-145) 03/28/23 13:51 Potassium 4.4 mmol/L (3.5-5.1) 03/28/23 13:51 Chloride 107 mmol/L (98-107) 03/28/23 13:51 Carbon Dioxide 21 mmol/L (22-29) L 03/28/23 13:51 Anion Gap 16.4 (5-19) 03/28/23 13:51 BUN 6 mg/dL (6-20) 03/28/23 13:51 Creatinine 0.5 mg/dL (0.5-0.9) 03/28/23 13:51 GFR Calculation 143.0 mL/min (90-130) H 03/28/23 13:51 Glucose 100 mg/dL (65-115) 03/28/23 13:51 Calculated Osmolality 288 mOsm/kg (285-295) 03/28/23 13:51 Calcium 9.3 mg/dL (8.5-10.5) 03/28/23 13:51 Total Bilirubin 0.2 mg/dL (0.15-1.2) 03/28/23 13:51 AST 19 U/L (0-32) 03/28/23 13:51 ALT 6 U/L (0-33) 03/28/23 13:51 Alkaline Phosphatase 82 U/L (35-105) 03/28/23 13:51 Total Protein 7.6 g/dL (6.6-8.7) 03/28/23 13:51 Albumin 4.3 g/dL (3.5-5.2) 03/28/23 13:51 Globulin 3.3 g/dL (1.3-4.6) 03/28/23 13:51 Lipase 17 U/L (13-60) 03/28/23 13:51 HCG, Qual Negative (Negative) 03/28/23 13:51 Urine Color Yellow (Yellow) 03/28/23 14:47 Urine Appearance Clear (CLEAR) 03/28/23 14:47 Urine pH 5 (5-7) 03/28/23 14:47 Ur Specific [place] 1.025 (1.005-1.030) 03/28/23 14:47 Urine Protein Neg (Negative) 03/28/23 14:47 Urine Glucose (UA) Norm (Normal) 03/28/23 14:47 Urine Ketones Negative (Negative) 03/28/23 14:47 Urine Blood 2+ (Negative) H 03/28/23 14:47 Urine Nitrate Negative (Negative) 03/28/23 14:47 Urine Bilirubin Neg (Negative) 03/28/23 14:47 Urine Urobilinogen Norm mg/dL (Negative) 03/28/23 14:47 Ur Leukocyte Esterase Negative (Negative) 03/28/23 14:47 Urine RBC 5-10 /hpf (0-2) H 03/28/23 14:47 Urine WBC 0-4 /hpf (0-5) H 03/28/23 14:47 Ur Squamous Epith Cells 0-4 /hpf (0-5) H 03/28/23 14:47 Ur Transition Epith Cell 0-4 /hpf 03/28/23 14:47 Amorphous Sediment Not Reportable 03/28/23 14:47 Urine Bacteria Trace /hpf (NONE) 03/28/23 14:47 Urine Mucus 2+ /hpf 03/28/23 14:47 Ur Oval Fat Bodies Rare /hpf 03/28/23 14:47 No radiology studies performed this visit Discharge Plan Discharge Patient Disposition: Home Clinical Impression: Alcoholic gastritis Qualifiers: Chronicity: acute Gastritis bleeding: without bleeding Qualified Code(s): K 29.20 - Alcoholic gastritis without bleeding Condition: Stable Prescriptions: New Protonix 40 mg tablet,delayed release (DR/EC) 40 mg PO BID 28 Days Qty: 56 0RF Carafate 1 gram tablet 1 g PO TID 14 Days Qty: 42 0RF No Action (DME) nebulizer accessories Kit See Rx Instructions .Route Qty: 1 0RF Rx Instructions: As directed albuterol sulfate [Ventolin HFA] 90 mcg/actuation HFA aerosol inhaler 2 puff inhalation QID PRN (Reason: Shortness Of Breath) buspirone 15 mg tablet 15 mg PO TID Tylenol Ex Str Rapid Release 500 mg Tablet 1,000 mg PO Q6H PRN (Reason: Pain) escitalopram oxalate 20 mg tablet 20 mg PO QAM methylphenidate HCl 10 mg tablet 10 mg PO BID@08,12 clonazepam 0.5 mg tablet 0.5 mg PO BID PRN (Reason: Anxiety) Discharge Orders: Discharge ED (Routine); Ordered 03/28/23 Ordered By: Enma Orellana Referrals: Juliana Cruz FNP-C [Primary Care Provider] - Patient Instructions: Gastritis (DC), Diet for Stomach Ulcers and Gastritis (ED) Activity Restrictions/Additional Instructions: As we discussed I want you to abstain from alcohol use as well as all anti- inflammatory use such as Ibuprofen/Motrin and Naproxen/Aleve. I would like you to avoid salty/spicy/acidic foods. Begin medications prescribed to you promptly. You need to return to the emergency department for worsening abdominal pain, bloody episodes of vomiting, black or tarry stools, or any other concerns you may have. I will have case management reach out to you to set you up with a primary care provider for further evaluation/follow-up. Coding Level of Care Code ED [facility] [place] for [facility]w [place]
[2023-03-28 14:08] LABS: Basophils % 0.2 %; Eosinophils # 0.2 10^3/uL (0.0-0.8); Eosinophils % 1.5 %; Hematocrit 44.7 % (36-47); Lymphocytes # 2.2 10^3/uL (0.8-4.8); Lymphocytes % 17.4 %; Mean Corpuscular HGB Conc 32.7 g/dL (30-55); Mean Corpuscular Hemoglobin 31.7 pg (27-33); Mean Corpuscular Volume 97.2 fl (85-98); Mean Platelet Volume 9.7 fL (7.4-10.4); Monocytes # 0.5 10^3/uL (0.2-0.9); Monocytes % 3.9 %; Neutrophils # 9.52 10^3/uL (1.8-7.7); Neutrophils % 76.7 %; Nucleated Red Blood Cells % 0 %; Platelet Count 312 10^3/cmm (157-399); White Blood Count 12.42 10^3/uL (3.29-11.43)
--- NOTE | 2023-03-28 14:10 | PC.PHAR ---
PT STATES SHE TAKES CARE OF HER OWN MEDICATIONS-PT STATES SHE IS STILL TAKING METHYLPHENIDATE 10MG BID EXT SHOWS LAST FILLED 01/17/23 30D/S-BUSPAR 15MG TID EXT SHOWS LAST FILLED 10/24/22 30D/S
[2023-03-28 14:24] LABS: HCG, Serum Qual Negative (Negative)
[2023-03-28 14:25] LABS: Alanine Aminotransferase 6 U/L (0-33); Albumin Level 4.3 g/dL (3.5-5.2); Alkaline Phosphatase 82 U/L (35-105); Anion Gap 16.4 (5-19); Aspartate Amino Transferase 19 U/L (0-32); Blood Urea Nitrogen 6 mg/dL (6-20); Calcium 9.3 mg/dL (8.5-10.5); Carbon Dioxide 21 mmol/L (22-29); Chloride 107 mmol/L (98-107); Creatinine Clr Calc Pharmacy 149.5718; Globulin 3.3 g/dL (1.3-4.6); Glucose 100 mg/dL (65-115); Lipase 17 U/L (13-60); Osmolality Calculated 288 mOsm/kg (285-295); Potassium 4.4 mmol/L (3.5-5.1); Sodium 140 mmol/L (136-145); Total Bilirubin 0.2 mg/dL (0.15-1.2); Total Protein 7.6 g/dL (6.6-8.7)
[2023-03-28] MEDS: lidocaine 2% viscous 15 ML, aluminum-mag hydrox-simethicon 30 ML, sucralfate oral liq 1 GM PO (14:52)
[2023-03-28 14:58] VITALS: BP 134/81; PULSE 83; O2SAT 96
[2023-03-28 15:06] LABS: Add Urine Microscopic? YES; Bilirubin Urine Neg (Negative); Blood Urine 2+ (Negative); Glucose Urine UA Norm (Normal); Ketones Urine Negative (Negative); Leukocyte Esterase Urine Negative (Negative); Nitrate Urine Negative (Negative); Protein Urine Neg (Negative); Specific Gravity, Urine 1.025 (1.005-1.030); Urine Appearance Clear (CLEAR); Urine Color Yellow (Yellow); Urobilinogen Urine Norm (Negative); pH Urine 5 (5-7)
[2023-03-28 15:26] LABS: Squamous Epithelial Cell Urine 0-4 /hpf (0-5); WBC Urine 0-4 /hpf (0-5)
[2023-03-28 15:27] LABS: Add Urine Culture? No; Bacteria Urine TRACE /hpf; Mucus Urine 2+ /hpf; Oval Fat Bodies Urine RARE /hpf; Transitional Epi Cells Urine 0-4 /hpf
[2023-03-28 15:34] VITALS: BP 102/61; PULSE 84; O2SAT 94
[2023-03-28 16:07] VITALS: BP 102/61; PULSE 76; O2SAT 93
--- NOTE | 2023-03-28 17:56 | DCPLANNER ---
Message sent to [facility] for a PCP.
== END 2023-03-28 15:50 | disposition home or self-care (01) ==
PROVIDERS: Emergency Medicine; Emergency Provider Physician Assistant; PCP Nurse Practitioner Family
DX: K29.20 Alcoholic gastritis without bleeding (principal); F17.210 Nicotine dependence, cigarettes, uncomplicated
CPT/HCPCS: 36415; 80053; 81001; 83690; 84703; 85025; 99283

== ENCOUNTER → 2024-01-05 09:57 | Outpatient (BNVA) | payer BC, MEDICAID, SELFPAY | PROVIDERS: PCP Nurse Practitioner Family; Visit Provider Nurse Practitioner Family | DX: Z13.6 Encounter for screening for cardiovascular disorders (principal); F33.2 Major depressive disorder, recurrent severe without psychotic features; Z79.899 Other long term (current) drug therapy; E55.9 Vitamin D deficiency, unspecified | CPT/HCPCS: 80053; 80061; 81003; 82306; 83036; 83735; 84439; 84443; 85025 ==

== ENCOUNTER → 2024-02-06 10:50 | Outpatient (BNVA) | payer BC, MEDICAID, SELFPAY | PROVIDERS: PCP Nurse Practitioner Family; Visit Provider Nurse Practitioner Family | DX: M54.9 Dorsalgia, unspecified (principal); G89.29 Other chronic pain; M25.50 Pain in unspecified joint | CPT/HCPCS: 85651; 86038; 86140; 86200; 86431 ==

== ENCOUNTER → 2025-02-05 08:21 | Outpatient (BNVA) | payer BC, MEDICAID, SELFPAY | PROVIDERS: PCP Nurse Practitioner Family; Visit Provider Nurse Practitioner Women's Health | DX: Z32.01 Encounter for pregnancy test, result positive (principal); N91.2 Amenorrhea, unspecified | CPT/HCPCS: 81025; 84702; 86850; 86900 ==